=== PATIENT | female | born 1990 | race Caucasian/White ===

== ENCOUNTER 2020-03-15 20:39 | Emergency (ER) | payer MEDICAID ==
[~2020-03-15] VITALS: Ht 154.9 cm; Wt 61.0 kg
[~2020-03-15 20:39] MED LIST: FERR-63 PO
[2020-03-15] MEDS ORDERED: ACETAMINOPHEN 325MG TABLET PO ONE (21:15)
[2020-03-15] MEDS ORDERED: SODIUM CHLORIDE 0.9% 1,000 ML IV ONE (21:15)
[2020-03-15] MEDS ORDERED: MORPHINE SULFATE 4 MG/ML CPJ (NOT FOR IM USE) IV STA (21:28)
[2020-03-15] MEDS ORDERED: ONDANSETRON HCL 4MG/2ML INJ IV STA (21:28)
[2020-03-15 21:56] LABS: BASOPHILS % 0.4 % (0.0-2.0); EOSINOPHILS % 0.7 % (0.0-5.0); HEMATOCRIT. 32.2 % (36.0-48.0); HEMOGLOBIN. 10.8 g/dL (12.0-16.0); LYMPHOCYTES % 19.3 % (20.0-50.0); MEAN CORPUSCULAR HEMOGLOBIN 27.1 pg (28.0-32.0); MEAN CORPUSCULAR VOLUME 80.8 fL (81.0-99.0); MEAN PLATELET VOLUME 8.9 fl (7.4-10.4); MONOCYTES % 7.4 % (2.0-8.0); NEUTROPHILS % 72.2 % (40.0-76.0); PLATELET 270 x1000/uL (130-400); RED BLOOD CELL COUNT 3.99 mill/uL (4.2-5.4); RED CELL DISTRIBUTION WIDTH 17.2 % (11.6-14.6)
[2020-03-15] MEDS ORDERED: SODIUM CHLORIDE 0.9% 1000ML BAG (SEPSIS BOLUS) IV NR (22:00)
[2020-03-15 22:04] LABS: CHLORIDE 107 mEq/L (98-107); INR 0.9
[2020-03-15 22:15] LABS: B-HCG QUANTITATIVE < 1 mIU/mL (<3); CLARITY URINE CLEAR (CLEAR); COLOR URINE YELLOW (YELLOW); KETONES URINE NEGATIVE (NEGATIVE); LEUKOCYTE ESTERASE URINE 1+ (NEGATIVE); NITRITE URINE NEGATIVE (NEGATIVE); OCCULT BLOOD URINE NEGATIVE (NEGATIVE); PH URINE 5.5 (4.5-8.0); PROTEIN URINE TRACE (NEGATIVE); SPECIFIC GRAVITY URINE 1.031 (1.005-1.030)
[2020-03-15] MEDS ORDERED: KETOROLAC 15MG/ML VIAL IV NR (22:45)
[2020-03-15] MEDS ORDERED: IOHEXOL-300 100 ML BOTTLE ONE (23:00)
[2020-03-15] MEDS ORDERED: CEFTRIAXONE 1 G PREMIX 50 ML IV ONE (23:45)
[2020-03-16 01:30] VITALS: BP 117/72
== END 2020-03-16 02:00 | disposition home or self-care (01) ==
LOC: ER 20:39
DX: O23.31 Infections of other parts of urinary tract in pregnancy, first trimester (principal); Z3A.01 Less than 8 weeks gestation of pregnancy; O34.81 Maternal care for other abnormalities of pelvic organs, first trimester; N83.291 Other ovarian cyst, right side
CPT/HCPCS: 36415; 74177; 76830; 76856; 80053; 81003; 81025; 83605; 84702; 85025; 85610; 86850; 86900; 86901; 87040; 87086; 93005; 96361; 96365; 96375; 99285; J0696; J1885; J2270; J2405; J7030; Q9967

== ENCOUNTER 2020-04-13 19:13 | Emergency (ER) | payer MEDICAID ==
[2020-04-13 19:27] VITALS: BP 106/67
== END 2020-04-13 20:00 | disposition home or self-care (01) ==
LOC: ER 19:19
DX: Z53.21 Procedure and treatment not carried out due to patient leaving prior to being seen by health care provider (principal)

== ENCOUNTER 2023-12-17 11:21 | Emergency (ER) | payer MEDICAID ==
[~2023-12-17] VITALS: Ht 152.4 cm; Wt 58.0 kg
[2023-12-17 11:28] VITALS: O2SAT 100
[2023-12-17 12:37] LABS: CLARITY URINE CLOUDY (CLEAR); COLOR URINE YELLOW (YELLOW); GLUCOSE URINE NEGATIVE (NEGATIVE); KETONES URINE NEGATIVE (NEGATIVE); LEUKOCYTE ESTERASE URINE 3+ (NEGATIVE); NITRITE URINE NEGATIVE (NEGATIVE); OCCULT BLOOD URINE TRACE (NEGATIVE); PH URINE 6.5 (4.5-8.0); PROTEIN URINE TRACE (NEGATIVE); SPECIFIC GRAVITY URINE 1.021 (1.005-1.030); UROBILINOGEN URINE 0.2 E.U./dL (0.2-1.0)
[2023-12-17 13:40] LABS: SQUAMOUS EPITHELIAL CELL URINE 3+ /lpf (RARE/1+)
[2023-12-17 13:41] LABS: MUCUS URINE 2+ /lpf (< = 2+)
[2023-12-17 13:42] LABS: BACTERIA URINE 2+
[2023-12-17 13:44] LABS: TRICHOMONAS URINE FEW; WBC URINE 25-50 /hpf (0-2)
[2023-12-17] MEDS ORDERED: VALA500T55 MT (14:21)
[2023-12-17] MEDS ORDERED: NITR100C MT (14:21)
[2023-12-17] MEDS ORDERED: METR-167 MT (14:21)
[2023-12-17] MEDS ORDERED: LIDO15CR11 TP (14:34)
[2023-12-17 15:20] VITALS: BP 117/66; PULSE 70; RESP 16; TEMP 36.89184; O2SAT 100
== END 2023-12-17 15:34 | disposition home or self-care (01) ==
LOC: ER 11:21
DX: A59.01 Trichomonal vulvovaginitis (principal); Z98.890 Other specified postprocedural states
CPT/HCPCS: 81003; 81025; 99284